=== PATIENT | male | born 1945 | race Caucasian/White ===

== ENCOUNTER 2017-01-07 14:50 | Emergency (ER) | payer MEDICARE, BC ==
[~2017-01-07] VITALS: Ht 172.7 cm; Wt 106.8 kg
[~2017-01-07 14:50] MED LIST: ALEVE 220MG220 MG PO; ASPIRIN 32325 MG/TAB PO; CARDURA 2MG2 MG PO; FIBERTAB625 MG PO; GLUCOPHAGE500 MG/TAB PO; GLUCOSAMINE PO; NASAL SPRAY NS; PROSCAR 5MG5 MG PO; VITAMIN D 1001000 IU PO; ZOCOR 20MG20 MG PO; ZYLOPRIM 300MG300 MG PO
[2017-01-07 15:00] VITALS: TEMP 97.8
[2017-01-07 16:32] LABS: BASO # 0.1 (0.0-0.2); EOS # 0.1 (0.0-0.7); EOS % 0.7 % (0-4.0); GRAN % 75.7 % (42.2-75.2); HEMATOCRIT 42.3 % (42.0-52.0); HEMOGLOBIN 14.7 g/dl (13.5-18.0); LYMPH # 1.6 (1.2-3.4); LYMPH % 14.7 % (20.0-51.0); MEAN CELL VOLUME 87 fl (80.0-100.0); MEAN CORPUSCULAR HEMOGLOBIN 30 pg (27.0-31.0); MEAN CORPUSCULAR HGB CONC 35 g/dl (33.0-37.0); MEAN PLATELET VOLUME 9.1 fl (7.4-10.4); MONO # 0.8 (0.1-0.6); MONO % 7.5 % (1.7-9.3); PLATELET COUNT 159 K/mm3 (130-400); RED BLOOD COUNT 4.87 M/mm3 (4.20-5.60); WHITE BLOOD COUNT 10.6 K/mm3 (4.8-10.8)
[2017-01-07 16:39] LABS: PARTIAL THROMBOPLASTIN TIME 32.4 SECONDS (26.0-37.0)
[2017-01-07] MEDS ORDERED: PRILOSEC10 MG PO (16:51)
[2017-01-07 16:52] LABS: ADJUSTED CALCIUM 9.5 mg/dL (8.4-10.2); ALANINE AMINOTRANSFERASE 32 U/L (21-72); ALBUMIN 4.1 gm/dL (3.5-5.0); ALKALINE PHOSPHATASE 56 U/L (50-136); AMYLASE 34 U/L (30-110); ANION GAP 11 mmol/L (7-16); BILIRUBIN,TOTAL 0.6 mg/dL (0.0-1.0); BLOOD UREA NITROGEN 14 mg/dL (9-20); CALCIUM 9.6 mg/dL (8.4-10.2); CARBON DIOXIDE 24 mmol/L (22-30); CHLORIDE 103 mmol/L (98-107); CREATININE, serum 0.84 mg/dL (0.66-1.25); GLUCOSE 161 mg/dL (74-106); LIPASE 39 U/L (23-300); POTASSIUM 4.2 mmol/L (3.4-5.0); SODIUM 138 mmol/L (137-145)
[2017-01-07 17:05] LABS: TROPONIN-I < 0.012 ng/mL (0.000-0.034)
[2017-01-07 17:28] VITALS: BP 182/82; PULSE 73
[2017-01-07 18:54] LABS: COLLECTION METHOD CLEAN CATCH
[2017-01-07 18:59] LABS: MUCOUS Present /lpf; PH 5 (5-8); SQUAMOUS EPITHELIAL 0-2 /hpf; URINE APPEARANCE Clear; URINE BACTERIA None Seen /hpf; URINE BILIRUBIN Negative (NEGATIVE); URINE BLOOD Negative (NEGATIVE); URINE COLOR Yellow; URINE GLUCOSE Negative (NEGATIVE); URINE KETONE Negative (NEGATIVE); URINE LEUKOCYTE ESTERASE Negative (NEGATIVE); URINE PROTEIN(semi-quant) Negative (NEGATIVE); URINE RBC 0-2 /hpf; URINE UROBILINOGEN Negative (NEGATIVE); URINE WBC 0-2 /hpf
== END 2017-01-07 20:45 | disposition home or self-care (01) ==
LOC: COL.ER 14:50
PROVIDERS: Emergency Medicine
DX: R10.13 Epigastric pain (principal); E11.9 Type 2 diabetes mellitus without complications; I10 Essential (primary) hypertension; E78.5 Hyperlipidemia, unspecified; K27.9 Peptic ulcer, site unspecified, unspecified as acute or chronic, without hemorrhage or perforation; Z87.891 Personal history of nicotine dependence; Z79.82 Long term (current) use of aspirin; Z79.84 Long term (current) use of oral hypoglycemic drugs
CPT/HCPCS: C9113; J2270; J2765; J7050; Q9967

== ENCOUNTER 2017-01-10 15:33 | Day surgery (SDC) | payer MEDICARE, BC ==
[~2017-01-10] VITALS: Ht 172.7 cm; Wt 104.6 kg
[2017-01-10] VITALS (7 sets, daily range): BP systolic 79–118; BP diastolic 54–72; PULSE 96–115; TEMP 98.6–100.1
[~2017-01-10 15:33] MED LIST changes: +PRILOSEC10 MG PO
== END 2017-01-10 18:27 | disposition home or self-care (01) ==
LOC: SDCO 15:33
DX: K21.9 Gastro-esophageal reflux disease without esophagitis (principal); K30 Functional dyspepsia; K22.2 Esophageal obstruction
CPT/HCPCS: OP; J2250; J2405; J3010; J7030

== ENCOUNTER → 2017-01-12 | Outpatient (CLI) | payer MEDICARE, BC | LOC: COL.RAD 11:30 | DX: K82.8 Other specified diseases of gallbladder (principal) ==

== ENCOUNTER 2017-01-14 13:56 | Day surgery (SDC) | payer MEDICARE, BC ==
[~2017-01-14] VITALS: Ht 172.7 cm; Wt 104.6 kg
[2017-01-14] VITALS (9 sets, daily range): BP systolic 123–146; BP diastolic 59–80; PULSE 53–68; TEMP 98.3–98.5
[~2017-01-14 13:56] MED LIST changes: -CARDURA 2MG2 MG PO; +CARDURA4 MG PO; +PRIL40 PO; -PRILOSEC10 MG PO
[2017-01-14] MEDS ORDERED: FLONASE NASAL S16 GM NS (14:14)
== END 2017-01-14 20:30 | disposition home or self-care (01) ==
LOC: SDCO 13:56 → JCC 16:15 → SDCO 20:30
DX: K81.9 Cholecystitis, unspecified (principal); R94.5 Abnormal results of liver function studies; R17 Unspecified jaundice; K21.9 Gastro-esophageal reflux disease without esophagitis; K30 Functional dyspepsia; J32.9 Chronic sinusitis, unspecified; I10 Essential (primary) hypertension; G47.33 Obstructive sleep apnea (adult) (pediatric); E11.9 Type 2 diabetes mellitus without complications
CPT/HCPCS: C1769; J1885; J2405; J2704; J7120; Q9967

== ENCOUNTER 2017-01-18 10:31 | Observation (INO) | payer MEDICARE, BC ==
[2017-01-18] VITALS (10 sets, daily range): BP systolic 133–154; BP diastolic 63–80; PULSE 83–92; TEMP 97.8–99.1
[~2017-01-18] VITALS: Ht 172.7 cm; Wt 105.0 kg
[~2017-01-18 10:31] MED LIST changes: +FLONASE NASAL S16 GM NS
[2017-01-18] MEDS ORDERED: ZESTRIL 20MG TA20 MG PO (12:32)
[2017-01-18] MEDS ORDERED: CIPRO 500MG TA500 MG PO (14:57)
[2017-01-18] MEDS ORDERED: FLAGYL500 MG PO (14:58)
[2017-01-18] MEDS ORDERED: NORCO 325 MG-51 TAB PO (14:59)
[2017-01-18] MEDS ORDERED: COLACE 100100 MG/CAP PO (14:59)
[2017-01-19 04:05] VITALS: BP 133/61; PULSE 80; TEMP 99.4
[2017-01-19 09:55] VITALS: BP 140/69; PULSE 80; TEMP 97.9
[2017-01-19] MEDS ORDERED: MOTRIN 600600 MG/TAB PO (10:45)
== END 2017-01-19 12:50 | disposition home or self-care (01) ==
LOC: SDCO 10:31 → SURG 14:13
DX: K81.2 Acute cholecystitis with chronic cholecystitis (principal); I10 Essential (primary) hypertension; E11.9 Type 2 diabetes mellitus without complications; K21.9 Gastro-esophageal reflux disease without esophagitis; G47.33 Obstructive sleep apnea (adult) (pediatric); J32.9 Chronic sinusitis, unspecified; N40.0 Benign prostatic hyperplasia without lower urinary tract symptoms; Z79.84 Long term (current) use of oral hypoglycemic drugs
CPT/HCPCS: G0378; J0690; J1100; J1170; J1885; J2405; J2704; J7030; J7120; Q9967

== ENCOUNTER 2022-03-09 11:32 | Day surgery (SDC) | payer MEDICARE, BC ==
[~2022-03-09] VITALS: Ht 172.7 cm; Wt 101.0 kg
[~2022-03-09 11:32] MED LIST changes: +CIPRO 500MG TA500 MG PO; +COLACE 100100 MG/CAP PO; +FLAGYL500 MG PO; +MOTRIN 600600 MG/TAB PO; +NORCO 325 MG-51 TAB PO; +NORVASC 10MG10 MG PO; +ZESTRIL 20MG TA20 MG PO
[2022-03-09] MEDS ORDERED: ULTRAM 50MG TAB50 MG PO (12:10)
[2022-03-09] MEDS ORDERED: TYLENOL 500MG500 MG PO (12:12)
[2022-03-09] MEDS ORDERED: PYRIDIUM 100MG100 MG PO (13:09)
[2022-03-09] MEDS ORDERED: NORCO 325 MG-51 TAB PO (13:10)
[2022-03-09 14:45] VITALS: BP 127/63; PULSE 90; TEMP 96.6
[2022-03-09 15:00] VITALS: BP 129/64; PULSE 90
[2022-03-09 15:15] VITALS: BP 126/64; PULSE 90
[2022-03-09 15:30] VITALS: BP 128/68; PULSE 88
--- NOTE | 2022-03-09 15:45 | NUR ---
1445 RETURNS TO ROOM 3 PER CART. AWAKE, ALERT. RESP CLEAR, UNLABORED. HOB ELEVATED 45 DEGREES. VITAL SIGNS OBTAINED. PATIENT DENIES PAIN OR URINARY URGENCY. CALL LIGHT AT SIDE. 1500 TOLERATES PO JUICE AND MUFFIN WITHOUT NAUSEA. 1505 DISCHARGE INSTRUCTIONS REVIEWED. PATIENT VERBALIZES UNDERSTANDING. COPY PROVIDED IN DISCHARGE FOLDER. 1520 AMBULATES TO BATHROOM WITH STANDBY ASSIST. VOIDS WITHOUT DIFFICULTY 1530 SITS IN CHAIR. DRESSES SELF
[2022-03-09 16:07] VITALS: BP 156/74; PULSE 102; TEMP 98.3
== END 2022-03-09 15:45 | disposition home or self-care (01) ==
LOC: SDCO 11:32
DX: N13.2 Hydronephrosis with renal and ureteral calculous obstruction (principal); E11.8 Type 2 diabetes mellitus with unspecified complications; Z79.84 Long term (current) use of oral hypoglycemic drugs; K21.9 Gastro-esophageal reflux disease without esophagitis
CPT/HCPCS: C1769; C2617; J0690; J1100; J1885; J2405; J2704; J3010; J7120